=== PATIENT | male | born 1990 | race American Indian/Alaskan Native ===

== ENCOUNTER 2017-08-31 11:43 | Emergency (ER) | payer OTHER ==
[2017-08-31 11:47] VITALS: BP 117/47
[2017-08-31 13:08] LABS: Bacteria,Urine 1+ /HPF (Negative); Bilirubin,Urine NEG (Negative); Blood,Urine NEG (Negative); Color,Urine Amber (Yellow); Mucus,Urine 3+ /HPF; Nitrite,Urine NEG (Negative)
[2017-08-31 13:09] LABS: WBC,Urine > 182.0 /HPF (0.0-6.0)
[2017-08-31] MEDS ORDERED: ZITHROMAX PO ONE (14:07)
[2017-08-31] MEDS ORDERED: XYLOCAINE 1% MPF 5 mL INFILTRATI ONE (14:07)
[2017-08-31] MEDS ORDERED: ROCEPHIN IM ONE (14:07)
--- NOTE | 2017-08-31 14:11 | Emergency Department Report ---
ED Dysuria HPI - HPI Chief Complaint: Urogenital-Male Stated Complaint: UROGENTELIA-MALE Time Seen by Provider: 08/31/17 14:04 Duration: 2 Days Severity: Mild Symptoms: Dysuria: Yes, Frequency: No, Suprapubic Pain: No, Flank Pain: No, Fever: No, Hematuria: No, Abdominal Pain: No, Previous UTI's: No Other History: penile dc. unprotected sex. known exposure. tingle w urination. penile dc. no abd pain ED Review of Systems ROS: Stated complaint: UROGENTELIA-MALE Other details as noted in HPI Comment: All other systems reviewed and negative Genitourinary: discharge ED Past Medical Hx - Past Medical History Previous Medical History?: No - Surgical History Past Surgical History?: No - Social History Smoking Status: Never Smoker Substance Use Type: Marijuana - Medications Home Medications: Home Medications Medication Instructions Recorded Confirmed Last Taken Type No Known Home Medications [No 02/16/14 02/16/14 Unknown History Reported Home Medications] Dysuria Exam - Exam General: Vital signs noted. No distress. Alert and acting appropriately. Exam: Yes Moist Mucous Membranes, No CVA Tenderness, No Abdominal Tenderness, No Rigidity or Guarding Labs: Lab Results 08/31/17 Range/Units 12:13 Urine Color [place] (Yellow) Urine Turbidity Slightly-cloudy (Clear) Urine pH 6.0 (5.0-7.0) Ur Specific [place] 1.029 (1.003-1.030) Urine Protein 30 mg/dl (Negative) mg/dL Urine Glucose (UA) Neg (Negative) mg/dL Urine Ketones Neg (Negative) mg/dL Urine Blood Neg (Negative) Urine Nitrite Neg (Negative) Urine Bilirubin Neg (Negative) Urine Urobilinogen 4.0 (<2.0) mg/dL Ur Leukocyte Esterase Lg (Negative) Urine WBC (Auto) > 182.0 H (0.0-6.0) /HPF Urine RBC (Auto) 14.0 (0.0-6.0) /HPF Urine Bacteria (Auto) 1+ (Negative) /HPF Urine Mucus 3+ /HPF ED Course Vital Signs 08/31/17 11:45 Temperature 98.3 F Pulse Rate 98 H Respiratory 16 Rate Blood Pressure 117/47 O2 Sat by Pulse 100 Oximetry - Reevaluation(s) Reevaluation #1: 08/31/17 14:10 non ill non toxic std exposure ua noted gc sent empir. cdc tx ED Medical Decision Making - Medical Decision Making see note - Differential Diagnosis std Critical care attestation.: If time is entered above; I have spent that time in minutes in the direct care of this critically ill patient, excluding procedure time. ED Disposition Clinical Impression: STD (male) Disposition: DC-01 TO HOME OR SELFCARE Is pt being admited?: No Does the pt Need Aspirin: No Condition: Stable Instructions: Safe Sex (ED) Additional Instructions: safe sex all sexual partners should be treated see attached instructions follow up with family doctor in 1 week - see below return to ER for severe abdominal pain routine STD checks can be done at the local health dept Referrals: PRIMARY CARE, [Primary Care Provider] - 3-5 Days SÁNCHEZ CISNEROS MD [Staff Physician] - 3-5 Days Time of Disposition: 14:08
== END 2017-08-31 14:46 | disposition home or self-care (01) ==
LOC: ED 11:43
DX: A64 Unspecified sexually transmitted disease (principal); F12.10 Cannabis abuse, uncomplicated
CPT/HCPCS: 81001; 96372; 99283; J0696